=== PATIENT | female | born 1990 | race Caucasian/White ===

== ENCOUNTER 2017-03-29 15:04 | Emergency (ER) | payer SELFPAY ==
[~2017-03-29] VITALS: Ht 172.7 cm; Wt 72.6 kg
[~2017-03-29 15:04] MED LIST: ALBU90OI INH; AMIT10 PO; AMIT25 PO; AMOCLA500 PO; AMOCLA875 PO; AMOX500 PO; AZIT250 PO; Augmentin 875-1 EACH PO; BCPs; BIRTH CONTROL; CEPH500 PO; CITA20 PO; CODACE30 PO; CYCL10 PO; Cyclobenzaprine5 MG PO; ERYT.5TO OS; FLUC150A PO; Flonase 0.05% N16 GM; GUAI100SY PO; HEARTBURN MED; HYDACE5 PO; HYDHCL25 PO; IBUP800 PO; LANS30EC PO; LORA1 PO; LORA10ER PO; METPRE4DP PO; METR500 PO; MULVITMINE PO; MULVITMINF PO; NAPR500 PO; NAPR500EC PO; ONDA4ODT MM; ONDA8ODT MM; OXYACE5T PO; PANT20 PO; PERMETHRIN 5%; PRED20 PO; PRODEXEL PO; PROM25 PO; PSEU120ER PO; Percocet 5-3251 EACH PO; RANI150 PO; RXCODGUASY PO; RXCYCL10 PO; RXHYDACE PO; RXOXYACE PO; RXPROM25 PO; RXTRAM50 PO; SPRINTEC; SULTRIDS PO; TRAM50 PO; YAZ PO
[2017-03-29] MEDS ORDERED: Sudogest60 MG PO (15:41)
[2017-03-29] MEDS ORDERED: MONDOXYNE NL100 MG PO (15:41)
== END 2017-03-29 15:46 | disposition home or self-care (01) ==
LOC: ER 15:04
DX: J32.9 Chronic sinusitis, unspecified (principal); F17.200 Nicotine dependence, unspecified, uncomplicated; Z88.8 Allergy status to other drugs, medicaments and biological substances; Z88.5 Allergy status to narcotic agent
CPT/HCPCS: 99283

== ENCOUNTER 2017-04-08 19:58 | Emergency (ER) | payer SELFPAY ==
[~2017-04-08] VITALS: Ht 172.7 cm; Wt 74.8 kg
[~2017-04-08 19:58] MED LIST changes: +MONDOXYNE NL100 MG PO; +Sudogest60 MG PO
[2017-04-08] MEDS ORDERED: Amoxicillin500 MG PO (21:42)
== END 2017-04-08 21:54 | disposition home or self-care (01) ==
LOC: ER 19:58
DX: J02.9 Acute pharyngitis, unspecified (principal); J32.9 Chronic sinusitis, unspecified; F17.210 Nicotine dependence, cigarettes, uncomplicated; Z88.8 Allergy status to other drugs, medicaments and biological substances; Z88.5 Allergy status to narcotic agent
CPT/HCPCS: 81000; 81025; 87081; 87430; 99283; J1100

== ENCOUNTER 2017-10-05 00:17 | Emergency (ER) | payer MEDICAID ==
[~2017-10-05] VITALS: Ht 167.6 cm; Wt 68.0 kg
[~2017-10-05 00:17] MED LIST changes: +Amoxicillin500 MG PO
== END 2017-10-05 01:05 | disposition home or self-care (01) ==
LOC: ER 00:17
DX: S61.215A Laceration without foreign body of left ring finger without damage to nail, initial encounter (principal); F17.210 Nicotine dependence, cigarettes, uncomplicated; Z88.5 Allergy status to narcotic agent; Z88.8 Allergy status to other drugs, medicaments and biological substances; W22.01XA Walked into wall, initial encounter
CPT/HCPCS: 12002; 99282

== ENCOUNTER → 2018-06-08 | Outpatient (CLI) | payer OTHER | END | disposition home or self-care (01) | LOC: LAB SHORT 11:30 → LAB EV 11:30 | DX: J02.9 Acute pharyngitis, unspecified (principal) | CPT/HCPCS: 87070; 87147 ==

== ENCOUNTER 2018-07-01 23:02 | Emergency (ER) | payer OTHER ==
[~2018-07-01] VITALS: Ht 175.3 cm; Wt 71.7 kg
[2018-07-02] MEDS ORDERED: FLUO10 PO (00:07)
== END 2018-07-02 03:45 | disposition home or self-care (01) ==
LOC: ER 23:02
DX: G43.909 Migraine, unspecified, not intractable, without status migrainosus (principal); G47.00 Insomnia, unspecified; F17.210 Nicotine dependence, cigarettes, uncomplicated; Z88.5 Allergy status to narcotic agent; Z88.8 Allergy status to other drugs, medicaments and biological substances; Z79.899 Other long term (current) drug therapy
CPT/HCPCS: 96361; 96374; 96375; 99283-25; J1100; J1200; J1885; J2550; J7030

== ENCOUNTER → 2018-07-23 | Outpatient (CLI) | payer OTHER ==
[~2018-07-23] MED LIST changes: +FLUO10 PO
[2018-07-28 15:06] LABS: HPV 16 Negative (Negative); HPV 18 Negative (Negative); HPV OTHER HR TYPES Positive (Negative)
== END | disposition home or self-care (01) ==
LOC: LAB 16:07 → LAB SHORT 16:07
PROVIDERS: Family Medicine
DX: Z12.4 Encounter for screening for malignant neoplasm of cervix (principal)
CPT/HCPCS: 87624; 87625; G0123

== ENCOUNTER → 2018-08-06 | Outpatient (CLI) | payer OTHER | END | disposition home or self-care (01) | LOC: LAB SHORT 12:37 → PLD 12:37 | DX: N87.9 Dysplasia of cervix uteri, unspecified (principal) | CPT/HCPCS: 88305 ==

== ENCOUNTER → 2019-12-07 | Outpatient (CLI) | payer OTHER ==
[2019-12-07 17:42] LABS: Source, Urine Clean Catch
[2019-12-07 19:21] LABS: Bacteria Few /hpf; Mucus Light (0-Heavy); Red Blood Cells, Urine Rare /hpf (0-2); Squamous Epithelial Cells Few /hpf (Few); White Blood Cells, Urine 0-2 /hpf (0-5)
[2019-12-07 19:56] LABS: U Amphetamine Screen Not Detected; U Barbituate Screen Not Detected; U Benzodiazapine Screen Not Detected; U Buprenorphine Screen Not Detected; U Cannabinoids Screen DETECTED; U Cocaine Screen Not Detected; U Methadone Screen Not Detected; U Methamphetamine Screen Not Detected; U Opiates Screen Not Detected; U Oxycodone Screen Not Detected; U Phencyclidine Screen Not Detected; U Propoxyphene Screen Not Detected
== END | disposition home or self-care (01) ==
LOC: LAB SHORT 15:30 → LAB 15:30
PROVIDERS: Obstetrics & Gynecology
DX: Z34.81 Encounter for supervision of other normal pregnancy, first trimester (principal)
CPT/HCPCS: 81015; 87086; G0480

== ENCOUNTER → 2019-12-31 | Outpatient (CLI) | payer OTHER ==
[2019-12-31 10:10] LABS: Anion Gap 13 mmol/L (6-16); Blood Urea Nitrogen 14 mg/dL (8-24); Bun/Creatinine Ratio 19.7 (12.0-20.0); CO2, Blood 23 mmol/L (21-32); Calcium, Blood 9.5 mg/dL (8.5-10.1); Chloride, Blood 99 mmol/L (98-108); Creatinine, Blood 0.71 mg/dL (0.40-1.00); Glomerular Filtration Rate >60 (60-); Glucose, Blood 84 mg/dL (70-99); Potassium, Blood 3.7 mmol/L (3.5-5.5); Sodium, Blood 135 mmol/L (136-145)
== END | disposition home or self-care (01) ==
LOC: LAB SHORT 10:02 → LAB EV 10:02
PROVIDERS: Physician Assistant
DX: R11.2 Nausea with vomiting, unspecified (principal)
CPT/HCPCS: 80048

== ENCOUNTER → 2020-01-10 | Outpatient (CLI) | payer OTHER ==
[2020-01-12 02:07] LABS: CHLAMYDIA TRACHOMATIS, NAA Negative (Negative); HPV 16 Negative (Negative); HPV 18 Negative (Negative); HPV OTHER HR TYPES Positive (Negative); NEISSERIA GONORRHOEAE, NAA Negative (Negative)
== END | disposition home or self-care (01) ==
LOC: LAB SHORT 17:41 → LAB 17:41
PROVIDERS: Advanced Practice Midwife
DX: Z36.89 Encounter for other specified antenatal screening (principal); O09.891 Supervision of other high risk pregnancies, first trimester; O99.333 Smoking (tobacco) complicating pregnancy, third trimester
CPT/HCPCS: 87491; 87591; 87624; 87625; G0123

== ENCOUNTER 2020-01-29 17:07 | Emergency (ER) | payer OTHER ==
[~2020-01-29] VITALS: Ht 172.7 cm; Wt 83.5 kg
[2020-01-29 17:53] LABS: BASOPHILS ABSOLUTE AUTO 0.03 K/mm3 (0.00-0.23); BASOPHILS PERCENT AUTO 0 % (0-2); EOSINOPHILS PERCENT AUTO 1 % (0-6); Hematocrit 38.6 % (33.0-51.0); Hemoglobin 13.4 g/dL (11.5-16.0); IMMATURE GRAN ABSOLUTE AUTO 0.02 K/mm3 (0.00-0.10); IMMATURE GRAN PERCENT AUTO 0 % (0-1); LYMPHOCYTES ABSOLUTE AUTO 1.26 K/mm3 (0.84-5.20); LYMPHOCYTES PERCENT AUTO 16 % (21-46); MONOCYTES ABSOLUTE AUTO 0.67 K/mm3 (0.16-1.47); MONOCYTES PERCENT AUTO 9 % (4-13); Mean Corpuscular HGB 31.6 pg (26.0-34.0); Mean Corpuscular HGB Conc 34.7 g/dL (31.5-36.5); Mean Corpuscular Volume 91 fL (80-100); Mean Platelet Volume 11.8 fL (9.1-12.4); NEUTROPHILS ABSOLUTE AUTO 5.65 K/mm3 (1.96-9.15); NEUTROPHILS PERCENT AUTO 73 % (41-73); Platelet Count 161 K/mm3 (150-400); RDW Coefficient Variation 12.2 % (11.7-14.2); RDW Standard Deviation 40.6 fL (35.1-46.3); Red Blood Cell Count 4.24 M/mm3 (3.80-5.20); White Blood Cell Count 7.73 K/mm3 (4.00-11.30)
[2020-01-29 18:26] LABS: Alanine Aminotransfer (ALT/SGP 15 U/L (12-78); Albumin, Blood 3.3 g/dL (3.4-5.0); Albumin/Globulin Ratio 0.8 (0.8-1.8); Alk Phos 62 U/L (50-136); Anion Gap 12 mmol/L (6-16); Aspartate Aminotrans (AST/SGOT 16 U/L (12-37); Bilirubin, Total 0.6 mg/dL (0.1-1.0); Blood Urea Nitrogen 8 mg/dL (8-24); Bun/Creatinine Ratio 13.7 (12.0-20.0); CO2, Blood 20 mmol/L (21-32); Calcium, Blood 9.1 mg/dL (8.5-10.1); Chloride, Blood 110 mmol/L (98-108); Creatinine, Blood 0.59 mg/dL (0.40-1.00); Globulin, Blood 3.9 g/dL (2.2-4.0); Glomerular Filtration Rate >60 (60-); Glucose, Blood 78 mg/dL (70-99); Potassium, Blood 3.5 mmol/L (3.5-5.5); Sodium, Blood 142 mmol/L (136-145); Total Protein, Blood 7.2 g/dL (6.4-8.2)
[2020-01-29] MEDS ORDERED: ONDA4ODT MM (20:20)
== END 2020-01-29 20:26 | disposition home or self-care (01) ==
LOC: ER 17:07
PROVIDERS: Emergency Medicine
DX: O21.9 Vomiting of pregnancy, unspecified (principal); F17.210 Nicotine dependence, cigarettes, uncomplicated; Z3A.16 16 weeks gestation of pregnancy; Z88.4 Allergy status to anesthetic agent; Z88.5 Allergy status to narcotic agent; Z88.8 Allergy status to other drugs, medicaments and biological substances; Z88.3 Allergy status to other anti-infective agents; Z79.899 Other long term (current) drug therapy
CPT/HCPCS: 36415; 80053; 83690; 85025; 96361; 96374; 99283-25; A9270-GY; J2405; J7120

== ENCOUNTER 2020-03-11 14:02 | Emergency (ER) | payer OTHER ==
[~2020-03-11] VITALS: Ht 172.7 cm; Wt 83.9 kg
[2020-03-11] MEDS ORDERED: PRENATAL DHA200 MG PO (14:20)
== END 2020-03-11 15:00 | disposition left against medical advice (07) ==
LOC: ER 14:02
DX: Z53.21 Procedure and treatment not carried out due to patient leaving prior to being seen by health care provider (principal)

== ENCOUNTER → 2020-06-19 | Outpatient (CLI) | payer OTHER ==
[~2020-06-19] MED LIST changes: +PRENATAL DHA200 MG PO
== END | disposition home or self-care (01) ==
LOC: LAB 16:40 → LAB SHORT 16:40
DX: O09.93 Supervision of high risk pregnancy, unspecified, third trimester (principal); O99.333 Smoking (tobacco) complicating pregnancy, third trimester
CPT/HCPCS: 87081; 87150

== ENCOUNTER 2020-07-13 06:04 | Inpatient (IN) | payer OTHER ==
[~2020-07-13] VITALS: Ht 175.3 cm; Wt 90.0 kg
[2020-07-13 09:00] LABS: BASOPHILS ABSOLUTE AUTO 0.03 K/mm3 (0.00-0.23); BASOPHILS PERCENT AUTO 0 % (0-2); EOSINOPHILS ABSOLUTE AUTO 0.13 K/mm3 (0.00-0.68); EOSINOPHILS PERCENT AUTO 1 % (0-6); Hematocrit 35.5 % (33.0-51.0); Hemoglobin 12.5 g/dL (11.5-16.0); IMMATURE GRAN ABSOLUTE AUTO 0.04 K/mm3 (0.00-0.10); IMMATURE GRAN PERCENT AUTO 0 % (0-1); LYMPHOCYTES ABSOLUTE AUTO 1.74 K/mm3 (0.84-5.20); LYMPHOCYTES PERCENT AUTO 15 % (21-46); MONOCYTES ABSOLUTE AUTO 0.81 K/mm3 (0.16-1.47); MONOCYTES PERCENT AUTO 7 % (4-13); Mean Corpuscular HGB 32.1 pg (26.0-34.0); Mean Corpuscular HGB Conc 35.2 g/dL (31.5-36.5); Mean Corpuscular Volume 91 fL (80-100); Mean Platelet Volume 12.6 fL (9.1-12.4); NEUTROPHILS PERCENT AUTO 76 % (41-73); Platelet Count 149 K/mm3 (150-400); RDW Standard Deviation 42.5 fL (35.1-46.3); Red Blood Cell Count 3.89 M/mm3 (3.80-5.20); White Blood Cell Count 11.35 K/mm3 (4.00-11.30)
[2020-07-13] MEDS ORDERED: ONDA4ODT (09:20)
[2020-07-14] MEDS ORDERED: IBUP800 PO (16:06)
[2020-07-14] MEDS ORDERED: DOCU100 PO (16:07)
--- NOTE | 2020-07-14 16:35 | NUR ---
DISCHARGE PATIENT WAS DISCHARGED ALERT AND STABLE. PT VERBALIZED UNDERSTANGING WITH DISCHARGE TEACHINGS FOR MOM AND BABY WELL FOLLOW UP APPOINTMENTS NEEDED.
== END 2020-07-14 16:30 | disposition home or self-care (01) | DRG 807 ==
LOC: OBS 06:04 → BC 06:05 → OBS 06:17 → BC 06:18
PROVIDERS: ADMIT Obstetrics & Gynecology
PROC: 10E0XZZ Delivery of Products of Conception, External Approach (ICD-10-PCS; principal; 2020-07-13)
PROC: 0UQGXZZ Repair Vagina, External Approach (ICD-10-PCS; 2020-07-13)
PROC: 10907ZC Drainage of Amniotic Fluid, Therapeutic from Products of Conception, Via Natural or Artificial Opening (ICD-10-PCS; 2020-07-13)
PROC: 3E033VJ Introduction of Other Hormone into Peripheral Vein, Percutaneous Approach (ICD-10-PCS; 2020-07-13)
PROC: 3E0234Z Introduction of Serum, Toxoid and Vaccine into Muscle, Percutaneous Approach (ICD-10-PCS; 2020-07-13)
PROC: 00HU33Z Insertion of Infusion Device into Spinal Canal, Percutaneous Approach (ICD-10-PCS; 2020-07-13)
PROC: 3E0R3BZ Introduction of Anesthetic Agent into Spinal Canal, Percutaneous Approach (ICD-10-PCS; 2020-07-13)
DX: O99.334 Smoking (tobacco) complicating childbirth (principal); Z37.0 Single live birth; F17.210 Nicotine dependence, cigarettes, uncomplicated; Z3A.39 39 weeks gestation of pregnancy; O71.4 Obstetric high vaginal laceration alone; O99.324 Drug use complicating childbirth; F12.90 Cannabis use, unspecified, uncomplicated; O99.344 Other mental disorders complicating childbirth; F43.10 Post-traumatic stress disorder, unspecified; O26.893 Other specified pregnancy related conditions, third trimester; Z67.41 Type O blood, Rh negative; Z20.822 Contact with and (suspected) exposure to COVID-19
CPT/HCPCS: 36415; 51702; 85025; 85460; 86850; 86900; 86901; 96372; A9270; J1885; J2001; J2210; J2590; J2791; J3010; J7120; U0004

== ENCOUNTER → 2020-09-13 | Outpatient (CLI) | payer OTHER ==
[~2020-09-13] MED LIST changes: +DOCU100 PO; +ONDA4ODT
[2020-09-15 11:11] LABS: HPV 16 Negative (Negative); HPV 18 Negative (Negative); HPV OTHER HR TYPES Positive (Negative)
== END | disposition home or self-care (01) ==
LOC: LAB 17:03 → LAB SHORT 17:03
PROVIDERS: Obstetrics & Gynecology
DX: Z09 Encounter for follow-up examination after completed treatment for conditions other than malignant neoplasm (principal); Z87.410 Personal history of cervical dysplasia
CPT/HCPCS: 87624; 88142

== ENCOUNTER → 2020-10-24 | Outpatient (CLI) | payer OTHER | LOC: LAB 18:53 → LAB SHORT 18:53 | DX: R10.9 Unspecified abdominal pain (principal); Z88.5 Allergy status to narcotic agent; Z88.1 Allergy status to other antibiotic agents; Z88.8 Allergy status to other drugs, medicaments and biological substances | CPT/HCPCS: 87086 ==

== ENCOUNTER → 2020-11-10 | Outpatient (CLI) | payer OTHER | END | disposition home or self-care (01) | LOC: LAB SHORT 13:30 → LAB 13:30 | DX: D06.7 Carcinoma in situ of other parts of cervix (principal) | CPT/HCPCS: 88307 ==

== ENCOUNTER → 2021-04-13 | Outpatient (CLI) | payer OTHER ==
[2021-04-13 18:26] LABS: Adenovirus F 40/41 Not Detected (NOT DETECT); Astrovirus Not Detected (NOT DETECT); Campylobacter Sp Not Detected (NOT DETECT); Cryptosporidium Not Detected (NOT DETECT); Cyclospora Cayetanensis Not Detected (NOT DETECT); E. Coli O157 Not Detected (NOT DETECT); Entamoeba Histolytica Not Detected (NOT DETECT); Enteroaggregative E. coli-EAEC Not Detected (NOT DETECT); Enteropathogenic E. coli-EPEC Not Detected (NOT DETECT); Enterotoxigenic E. coli-ETEC Not Detected (NOT DETECT); Giardia Lamblia Not Detected (NOT DETECT); Norovirus GI/GII Not Detected (NOT DETECT); Plesiomonas Shigelloides Not Detected (NOT DETECT); Rotavirus A Not Detected (NOT DETECT); Salmonella Sp Not Detected (NOT DETECT); Sapovirus Not Detected (NOT DETECT); Shiga Toxin-prod E. coli-STEC Not Detected (NOT DETECT); Shigella/Enteroin E. coli-EIEC Not Detected (NOT DETECT); Vibrio Cholerae Not Detected (NOT DETECT); Vibrio Sp Not Detected (NOT DETECT); Yersinia Enterocolitica Not Detected (NOT DETECT)
== END ==
LOC: LAB SHORT 10:50
PROVIDERS: General Practice
DX: A06.1 Chronic intestinal amebiasis (principal)
CPT/HCPCS: 0097U

== ENCOUNTER → 2022-02-15 | Outpatient (CLI) | payer OTHER ==
[2022-02-18 15:08] LABS: HPV 16 Negative (Negative); HPV 18 Negative (Negative); HPV OTHER HR TYPES Negative (Negative)
== END | disposition home or self-care (01) ==
LOC: LAB SHORT 12:47 → LAB 12:47
PROVIDERS: Obstetrics & Gynecology
DX: Z01.419 Encounter for gynecological examination (general) (routine) without abnormal findings (principal)
CPT/HCPCS: 87624; G0123